=== PATIENT | male | born 1960 | race Caucasian/White ===

== ENCOUNTER → 2023-08-12 08:09 | Outpatient (BNVA) | payer MEDICARE, SELFPAY | PROVIDERS: PCP Nurse Practitioner; Referring Provider Nurse Practitioner; Visit Provider Student in an Organized Health Care Education/Training Program | DX: M17.11 Unilateral primary osteoarthritis, right knee (principal) | CPT/HCPCS: 20610; 99202; J1040 ==

== ENCOUNTER 2023-12-23 11:33 | Outpatient (CLI) | payer MEDICARE, SELFPAY ==
--- NOTE | 2023-12-23 08:15 | DI.RAD_ITS ---
Exam(s) XR KNEE RT 3V AP,LAT,ROLLY EXAM: XR KNEE RT 3V AP,LAT,ROLLY CLINICAL HISTORY: R Knee pain. TECHNIQUE: 2D digital imaging was performed of the right knee. Three views obtained. AP, lateral an d PA tunnel views were obtained. COMPARISON: CR XR KNEE 2 VIEW RIGHT from 10/28/2017 FINDINGS: BONES: No acute fracture is present. No bony destructive lesion is seen. JOINTS: There is marked narrowing of the medial femoral tibial joint. There is also narrowing of the patellofemoral joint. There osteophytes in all 3 joint compartments. No joint effusion is seen. SOFT TISSUE: Normal. IMPRESSION: There are marked degenerative changes seen in the right knee. DATA REPOSITORY: RADIATION DOSE DELIVERED:
== END 2023-12-23 11:34 | disposition home or self-care (01) ==
LOC: DIORS 11:34
PROVIDERS: PCP Nurse Practitioner; Referring Provider Nurse Practitioner; Visit Provider Physician Assistant
DX: M17.11 Unilateral primary osteoarthritis, right knee (principal)
CPT/HCPCS: 20610; 73562; J1010

== ENCOUNTER → 2024-05-14 13:19 | Outpatient (BNVA) | payer MEDICARE, SELFPAY | PROVIDERS: PCP Nurse Practitioner; Referring Provider Nurse Practitioner; Visit Provider Student in an Organized Health Care Education/Training Program | DX: M17.11 Unilateral primary osteoarthritis, right knee (principal) | CPT/HCPCS: 20610; J1010 ==

== ENCOUNTER → 2024-08-13 12:48 | Outpatient (BNVA) | payer MEDICARE, SELFPAY | PROVIDERS: PCP Nurse Practitioner; Referring Provider Nurse Practitioner; Visit Provider Student in an Organized Health Care Education/Training Program | DX: M17.11 Unilateral primary osteoarthritis, right knee (principal) | CPT/HCPCS: 99213 ==

== ENCOUNTER 2024-11-16 03:04 | Outpatient (CLI) | payer MEDICARE, SELFPAY ==
[2024-11-16 18:31] LABS: HCT 42.5 % (40.0-50.0); HGB 14.5 g/dL (13.5-17.5); MCH 33.7 pg (27.0-33.0); MCHC 34.1 % (32.0-36.0); MCV 99 fL (80-95); MPV 8.6 fL (8.0-11.0); Platelet Count 165 10^3/uL (130-400); RDW 12.4 % (11.8-14.1); RDW-SD 45.1 fL; WBC 5.78 10^3/uL (4.4-10.8)
[2024-11-16 18:38] LABS: Anion Gap 8.5 mmol/L (3-11); BUN 31 mg/dL (7-18); CO2 29.5 mmol/L (21.0-32.0); CREATININE 1.3 mg/dL (0.70-1.30); Calcium 9.2 mg/dL (8.5-10.1); Chloride 101 mmol/L (98-107); Estimated GFR 60.59 (mL/min/1.73m2); Glucose 81 mg/dL (74-106); Potassium 4.3 mmol/L (3.5-5.1); Sodium 139 mmol/L (136-145)
== END 2024-11-16 03:05 | disposition home or self-care (01) ==
LOC: LBO 03:05 → LBN 18:08
PROVIDERS: PCP Nurse Practitioner Family; Visit Provider Student in an Organized Health Care Education/Training Program
DX: M17.11 Unilateral primary osteoarthritis, right knee (principal); Z01.818 Encounter for other preprocedural examination
CPT/HCPCS: 80048; 85027

== ENCOUNTER 2024-11-16 13:15 | Outpatient (CLI) | payer MEDICARE, SELFPAY ==
--- NOTE | 2024-11-16 13:20 | DI.RAD_ITS ---
Exam(s) XR KNEE RT 1V XR STANDING ALIGNMENT EXAM: XR STANDING ALIGNMENT CLINICAL HISTORY: PRE OP R TKA. TECHNIQUE: 2D digital imaging was performed. Standing AP views were performed from the pelvis through the ankles. Lateral view of the right, with a [id number] appearance. This causes marked varus angulation. There is prominent periarticular spurring. Left knee joint spaces are maintained. Knee COMPARISON: CR XR KNEE RT 3V AP,LAT,ROLLY from 12/23/2023 CR XR KNEE RT 1V from 11/16/2024 FINDINGS: BONES: No acute fracture is present. No bony destructive lesion is seen. Leg length discrepancy: Mild overall leg length discrepancy, with the left femoral head projecting approximately 5 millimeter superior to the right.. JOINTS: Knees: There is severe narrowing of the medial femoral tibial joint space of the right knee The ankle joints are unremarkable. The hip joints are unremarkable. SOFT TISSUE: Skin soft tissue calcifications in the lower legs bilaterally. IMPRESSION: Severe degenerative changes of the right knee. Mild leg length discrepancy. DATA REPOSITORY: RADIATION DOSE DELIVERED:
--- NOTE | 2024-11-16 13:27 | DI.RAD_ITS ---
Exam(s) XR KNEE RT 1V XR STANDING ALIGNMENT EXAM: XR STANDING ALIGNMENT CLINICAL HISTORY: PRE OP R TKA. TECHNIQUE: 2D digital imaging was performed. Standing AP views were performed from the pelvis through the ankles. Lateral view of the right, with a [id number] appearance. This causes marked varus angulation. There is prominent periarticular spurring. Left knee joint spaces are maintained. Knee COMPARISON: CR XR KNEE RT 3V AP,LAT,ROLLY from 12/23/2023 CR XR KNEE RT 1V from 11/16/2024 FINDINGS: BONES: No acute fracture is present. No bony destructive lesion is seen. Leg length discrepancy: Mild overall leg length discrepancy, with the left femoral head projecting approximately 5 millimeter superior to the right.. JOINTS: Knees: There is severe narrowing of the medial femoral tibial joint space of the right knee The ankle joints are unremarkable. The hip joints are unremarkable. SOFT TISSUE: Skin soft tissue calcifications in the lower legs bilaterally. IMPRESSION: Severe degenerative changes of the right knee. Mild leg length discrepancy. DATA REPOSITORY: RADIATION DOSE DELIVERED:
== END 2024-11-16 13:16 | disposition home or self-care (01) ==
LOC: DIORS 13:16
PROVIDERS: PCP Nurse Practitioner Family; Referring Provider Nurse Practitioner Family; Visit Provider Physician Assistant
DX: Z01.818 Encounter for other preprocedural examination (principal); M17.11 Unilateral primary osteoarthritis, right knee
CPT/HCPCS: 99024; 73560; 77073

== ENCOUNTER 2024-11-24 08:12 | Day surgery (SDC) | payer MEDICARE, SELFPAY ==
[2024-11-24] VITALS (7 sets, daily range): BP systolic 135–157; BP diastolic 63–72; PULSE 55–85; RESP 12–17; TEMP 36.1–37.2; O2SAT 93–100; BMI 47.6
--- NOTE | 2024-11-24 07:21 | PDOC.DSDIS_ITS ---
Date of service: 11/24/24 Discharge Plan Disposition Patient Disposition: Home Condition: Good Discharge Details Reason For Visit: Right knee DJD Attending Provider: Rayshawn Mcmahan Primary Care Provider: CHRIS MOHR [place] Meds and New Rx's Prescriptions: New meloxicam 15 mg tablet 15 mg PO DAILY Qty: 30 1RF Rx Instructions: Take one tablet daily for pain and inflammation acetaminophen 500 mg tablet 1,000 mg PO Q8H PRN Qty: 90 0RF Rx Instructions: Take two tablets up to every 8 hours as needed for pain pantoprazole 40 mg tablet,delayed release (DR/EC) 40 mg PO DAILY Qty: 14 0RF dexamethasone 4 mg tablet 4 mg PO DAILY Qty: 2 0RF Rx Instructions: Take one tablet once daily for two days docusate sodium [Colace] 100 mg capsule 100 mg PO BID Qty: 28 0RF oxycodone 5 mg tablet 5 mg PO Q4H PRNQty: 18 0RF Rx Instructions: Take one tablet up to every 4 hours as needed for severe postoperative pain Continued metoprolol succinate 100 mg tablet extended release 24 hr 150 mg PO HS gabapentin 300 mg capsule 300 mg PO QHS duloxetine 60 mg capsule,delayed release(DR/EC) 60 mg PO DAILY atorvastatin 40 mg tablet 40 mg PO DAILY bupropion HCl 150 mg tablet sustained-release 12 hr 300 mg PO QAM hydrochlorothiazide 25 mg tablet 25 mg PO DAILY omega-3 fatty acids-fish oil 340-1,000 mg capsule 1 cap PO HS ramipril 10 mg capsule See Rx Instructions PO BID Rx Instructions: one capsule every morning and 2 capsules every night orally multivitamin Tablet 1 tab PO DAILY aspirin 325 mg tablet 325 mg PO DAILY Zepbound 2.5 mg/0.5 mL pen injector 2.5 mg subcut QWEEK Rx Instructions: for 4 weeks Discontinued diclofenac sodium 75 mg tablet,delayed release (DR/EC) 75 mg PO DAILY Discharge Instructions Additional Instructions: Total Knee Discharge Instructions Activity: The most important activity is to walk and to work on gentle motion (both flexion and extension). You should try to take short walks a few times a day. It is important that when resting you work on keeping the knee straight. Avoid putting a pillow behind the knee as this will encourage flexion. Work on range of motion exercises as provided by Physical Therapy. - Start outpatient physical therapy within 2 weeks. - You should wear the JAMES hose on both legs for 2 weeks. You may remove these at night. You may also use any compression sock in place of the JAMES hose. - Utilize [employer] to review exercises, see videos on exercises and obtain basic information pertaining to your surgery and your recovery. Dressing: Remove the Frantz wrap by 2 days after your surgery and put on the JAMES stocking given to you from the hospital. Keep the surgical dressing (underneath the FRANTZ wrap) in place for at least one week. After the first week it may be removed and replaced with light gauze and tape or nothing. The wound and dressing may get wet after 3 days but avoid soaking the dressing or otherwise it will need to be changed. Many people prefer covering the dressing with cling wrap (saran wrap) to minimize it from getting soaked. If it gets wet, just pat dry. If it starts to peel off then it will need to be changed. Medications: - You should take Tylenol and anti-inflammatory Meloxicam as your primary pain control medications. If the Meloxicam is too expensive or not covered, please call the office for another alternative (Advil/Ibuprofen or Naproxen/Aleve) - You have been prescribed a stronger pain medication Oxycodone for breakthrough pain, take as needed as prescribed. - You have also been prescribed a stomach acid reduction agent Pantoprozole to help reduce stomach acid and reflux. - You take Gabapentin at baseline - continue to take at night for restlessness and nerve pain. - You have also been prescribed Decadron to take to control post-operative nausea and pain. You will start this tomorrow. - If you have constipation you should take Colace (which has been prescribed) or Miralax (which is available [id number]). It takes most people 3-4 days to have a bowel movement. Follow-up: 2 weeks If you have any acute concerns or questions, please do not hesitate to contact the office at [phone]. You may contact Dr. Mcmahan with any questions after hours through the hospital at [phone] or on his cell phone at [phone]. Referrals: Rayshawn Mcmahan MD [ [facility] STAFF PHYSICIAN, Orthopaedic Surgical] Equipment/Supplies: Walker Activity:: Elevate Remove Dressings/Wound Care:: Do Not Remove Shower/Bathe:: Cover Diet:: As Tolerated Discharge Orders Discharge Orders: Discharge Order (Routine); Ordered 11/24/24 Ordered By: Alley Gupta
[2024-11-24] MEDS: Acetaminophen 500 MG TAB 1000 MG PO (09:20)
[2024-11-24] MEDS: Gabapentin 300 MG CAP PO (09:21)
[2024-11-24] MEDS: Celecoxib 200 MG CAP 400 MG PO (09:21)
[2024-11-24] MEDS: Lactated Ringers 1,000 ML 80 ML IV ×2 (09:36→13:03)
--- NOTE | 2024-11-24 09:49 | W.ANESPRE ---
General Info Date of Service Date Performed: 11/24/24 Height: 5 ft 5 in Weight: 129.9 kg Body Mass Index (BMI): 47.6 Surgical Procedure: Operation Date: 11/24/24 11:40 Proposed Procedure Side Surgeon p Knee Total Arthroplasty Right Rayshawn Mcmahan MD Actual Procedure Side Surgeon p Knee Total Arthroplasty Right Rayshawn Mcmahan MD Pre-Op Diagnosis Post-Op Diagnosis Osteoarthritis of right knee Meds Allergies and Home Medications Allergies Allergy/AdvReac Type Severity Reaction Status Date / Time Opioids - Morphine Analogues Allergy Intermediate Other (See Verified 11/24/24 09:02 Comment) acetaminophen (From Tylenol AdvReac Other (See Verified 11/24/24 08:43 Cold Head Congestion) Comment) dextromethorphan (From AdvReac Other (See Verified 11/24/24 08:43 Tylenol Cold Head Congestion) Comment) guaifenesin (From Tylenol AdvReac Other (See Verified 11/24/24 08:43 Cold Head Congestion) Comment) morphine AdvReac vomiting Verified 11/24/24 08:43 omega-3 acid ethyl esters AdvReac Other (See Verified 11/24/24 08:43 (From [place]) Comment) phenylephrine (From Tylenol AdvReac Other (See Verified 11/24/24 08:43 Cold Head Congestion) Comment) Home Medication ?Medication ?Instructions ?Recorded aspirin 325 mg tablet 325 mg PO DAILY 07/10/23 atorvastatin 40 mg tablet 40 mg PO DAILY 07/10/23 bupropion HCl 150 mg tablet,12 hr 300 mg PO QAM 07/10/23 sustained-release duloxetine 60 mg capsule,delayed 60 mg PO DAILY 07/10/23 release gabapentin 300 mg capsule 300 mg PO QHS 07/10/23 hydrochlorothiazide 25 mg tablet 25 mg PO DAILY 07/10/23 multivitamin 1 tab PO DAILY 07/10/23 omega-3 fatty acids-fish oil 340 1 cap PO HS 07/10/23 mg-1,000 mg capsule ramipril 10 mg capsule See Rx Instructions PO BID 07/10/23 metoprolol succinate 100 mg 150 mg PO HS 11/16/24 tablet,extended release 24 hr tirzepatide (weight loss) 2.5 2.5 mg subcut QWEEK 11/18/ mg/0.5 mL subcutaneous pen injector (Zepbound) acetaminophen 500 mg tablet 1,000 mg (2 x 500 mg) PO Q8H PRN 11/24/24 pain #90 tabs dexamethasone 4 mg tablet 4 mg PO DAILY #2 tabs 11/24/24 diclofenac sodium 75 mg mg PO ONCE 11/24/24 tablet,delayed release docusate sodium 100 mg capsule 100 mg PO BID #28 caps 11/24/24 (Colace) meloxicam 15 mg tablet 15 mg PO DAILY #30 tabs 11/24/24 oxycodone 5 mg tablet 5 mg PO Q4H PRN #18 tabs 11/24/24 pantoprazole 40 mg tablet,delayed 40 mg PO DAILY #14 tabs 11/24/24 release Current Visit Medications: Current Medications Generic Name Dose Route Start Last Admin Trade Name Freq PRN Reason Stop Dose Admin Acetaminophen 1,000 mg 11/24/24 06:00 11/24/24 09:20 Acetaminophen 500 Mg Tab PO 11/24/24 23:59 1,000 mg PREOP JENNY Administration Celecoxib 400 mg 11/24/24 06:00 11/24/24 09:21 Celecoxib 200 Mg Cap PO 11/24/24 23:59 400 mg PREOP JENNY Administration Ephedrine Sulfate 0 mg 11/24/24 09:27 Ephedrine 25 Mg/5 Ml Syringe IVP 12/24/24 09:26 DIRECTED PRN Fentanyl 0 mcg 11/24/24 09:27 Fentanyl 100 Mcg/2 Ml Vial IVP 12/24/24 09:26 DIRECTED PRN Gabapentin 300 mg 11/24/24 06:00 11/24/24 09:21 Gabapentin 300 Mg Cap PO 11/24/24 23:59 300 mg PREOP JENNY Administration Hydromorphone HCl 0.5 mg 11/24/24 07:19 Hydromorphone 2 Mg/Ml Syr IVP 12/24/24 07:18 Q2H PRN PRN Hydromorphone HCl 0 mg 11/24/24 09:27 Hydromorphone 2 Mg/Ml Syr IVP 12/24/24 09:26 DIRECTED PRN Ringer's Solution 1,000 mls @ 80 mls/hr 11/24/24 06:00 11/24/24 09:36 IV 12/23/24 23:59 80 mls/hr INFUSION JENNY Administration Cefazolin Sodium 3,000 mg/ 100 mls @ 200 mls/hr 11/24/24 06:00 Sodium Chloride IV 11/24/24 23:59 PREOP JENNY Tranexamic Acid/Sodium Chloride 1,000 mg in 100 mls @ 600 mls/hr 11/24/24 06:00 IVPB 11/24/24 23:59 PREOP JENNY Cefazolin Sodium/Dextrose 1 gm in 50 mls @ 100 mls/hr 11/24/24 08:00 Ancef Duplex IVPB 11/25/24 00:29 Q8H JENNY IV Miscellaneous Supplies 1 each 11/24/24 06:00 Iv Access IV 12/23/24 23:59 DIRECTED JENNY Naloxone HCl 0 mg 11/24/24 09:27 Naloxone 0.4 Mg/Ml Vial IVP 12/24/24 09:26 PRN PRN Oxycodone HCl 0 mg 11/24/24 07:19 Oxycodone 5 Mg Tab PO 12/24/24 07:18 Q3H PRN PRN Pain Sodium Chloride 0 ml 11/24/24 06:00 Normal Saline Flush 10 Ml Syr IV 12/23/24 23:59 PRN PRN Sodium Chloride 0 ml 11/24/24 06:00 Normal Saline 10 Ml Vial IJ 12/23/24 23:59 DIRECTED PRN Sterile Water 0 ml 11/24/24 06:00 Water,Injection,Sterile 10 Ml Vial IJ 12/23/24 23:59 DIRECTED PRN Tranexamic Acid 1,300 mg 11/24/24 07:19 Tranexamic Acid 650 Mg Tab PO 12/24/24 07:18 ONCE PRN postoperative PFSH Active Problems Active Problems: Problem Status Onset Code Osteoarthritis of right knee Acute M17.11 Thoracic aortic aneurysm Acute I71.20 TONIO (obstructive sleep apnea) Chronic G47.33 Panic disorder Acute F41.0 Depressive disorder Chronic F32.A Pulmonary hypertension Acute I27.20 Cholelithiasis Acute K80.20 Morbid obesity Acute E66.01 Hypertension Chronic I10 CAD (coronary artery disease) Chronic I25.10 Medical History Medical History History of placement of stent in LAD coronary artery Malignant melanoma Diastolic heart failure Hyperlipidemia History of malignant melanoma Inguinal lymphadenopathy Surgical History Surgical History History of tonsillectomy History of colonoscopy History of melanoma excision History of cardiac cath 2 stents Tobacco Smoking/Tobacco Use Status: Never Alcohol Alcohol Intake: never Substance Use Substance use: Never Substance use type: does not use Vital Signs and Lab Results Vital Signs Most Recent Vital Signs in EMR: Most Recent Vital Signs Temp Pulse Resp BP Pulse Ox 36.2 C L 55 L 16 155/72 H 96 11/24/24 08:33 11/24/24 08:33 11/24/24 08:33 11/24/24 08:33 11/24/24 08:33 Lab Results Complete Blood Count: WBC, (4.4-10.8) 5.78 10^3/uL 11/16/24, 14:15 RBC, (4.36-5.78) 4.30 10^6/uL L 11/16/24, 14:15 Hgb, (13.5-17.5) 14.5 g/dL 11/16/24, 14:15 Hct, (40.0-50.0) 42.5 % 11/16/24, 14:15 Plt Count, (130-400) 165 10^3/uL 11/16/24, 14:15 Complete Metabolic Panel: Sodium, (136-145) 139 mmol/L 11/16/24, 14:15 Potassium, (3.5-5.1) 4.3 mmol/L 11/16/24, 14:15 Chloride, (98-107) 101 mmol/L 11/16/24, 14:15 Carbon Dioxide, (21.0-32.0) 29.5 mmol/L 11/16/24, 14:15 BUN, (7-18) 31 mg/dL H 11/16/24, 14:15 Creatinine, (0.70-1.30) 1.3 mg/dL 11/16/24, 14:15 Est GFR (CKD-EPI 2020), (mL/min/1.73m2) 60.59 11/16/24, 14:15 Calcium, (8.5-10.1) 9.2 mg/dL 11/16/24, 14:15 Glucose, (74-106) 81 mg/dL 11/16/24, 14:15 Anesthesia Assessment and Plan Anesthesia History Personal History: PONV Family History: No Family History of Anesthesia Complications and Other Exercise Tolerance Exercise Tolerance: Metabolic Equivalents>4 Pertinent Negatives Pertinent Negatives: No Symptoms of GERD Cardiac & Pulmonary Exam Cardiac Exam: Normal S1/S2 Heart Sounds Pulmonary Exam: Clear Bilateral Breath Sounds Implantable Cardiac Device Does patient have a Pacemaker or an ICD?: No Airway Exam Known Difficult Airway: No Mallampati Class: 3 Mouth Opening: Normal (> 3cm) Thyromental Distance: Greater than 3 cm Neck Range of Motion: Full ROM Neck Circumference: Normal Teeth Condition: Normal Dentition ASA Classification ASA Score: ASA 3 Emergency Case?: No NPO Status NPO Status: NPO Clears >2 hours, Solids >8 hours Anesthesia Plan Resuscitation Status: Full Code Anesthesia Technique: Spinal Anesthesia Airway Planned: Natural Airway Pain Management: Surgeon and patient request nerve block Monitors Used: Standard Monitors
--- NOTE | 2024-11-24 10:33 | W.ANESNERVE ---
Nerve Block Single Injection Procedure Date and Time Date Performed: 11/24/24 Procedure Start: 10:11 Location Where Procedure Performed Procedure Location: Day Surgery Unit Reason Performed: Postoperative Analgesia Requesting Provider: Rayshawn Mcmahan Timeout Performed Timeout Performed: Yes Monitoring Used ECG, Blood Pressure, SpO2, ETCO2 and See EMR for corresponding vital signs Sterility Sterility: Hand Hygiene, Surgical Cap, Surgical Mask, Sterile Gloves, Eye Protection and Chlorhexidine Sedation Given During Procedure Sedation Given (Indicate Dose Given): Versed IV Dose:: 3mg IVP Patient Mental Status Patient Mental Status: Sedate with meaningful communication Nerve Block 1st Nerve Block: Laterality: Right Block Type: Adductor Canal Ultrasound Image Saved?: Yes Needle / Catheter Used: 120mm SonoPlex II Local Anesthetic Bolus (Indicate Dose Given): Lidocaine used for local infiltration of skin, Injected in 3-5ml increments after negative blood aspiration, Bupivacaine 0.5% Dose:: 0.5%/10cc (50mg) and Exparel Dose:: 10cc/1.33% (133mg) Additives (Indicate Dose Given): Epinephrine to make 1:200,000 (5mcg/ml) (added to 0.5% Bup) Dose:: 50mcg Ultrasound: Sterile probe cover and gel used Nerve Stimulator: Not Used Paresthesia: None Procedure Tolerated: No Complications and Patient tolerated well Procedure Outcome: Successful Performed By: Diogo Wells
[2024-11-24] MEDS: ceFAZolin 3,000 MG in Normal Saline 100 ML 200 MG IV (11:05)
[2024-11-24] MEDS: TRANEXAMIC ACID/SOD. CHL. 1,000 MG/100 ML BAG 600 MG IVPB (11:11)
--- NOTE | 2024-11-24 14:18 | W.PM.OP ---
Operative Note Operative Note PRE-OP DIAGNOSIS: Right Knee Osteoarthritis with Severe Varus Deformity POST-OP DIAGNOSIS: same PROCEDURE: Right Total Knee Replacement with Intraoperative Navigation SURGEON: Rayshawn Mcmahan INFECTION CONTROL PRACTITIONER: Alley Gupta ANESTHESIA TYPE: Spinal Refer to Anesthesia Record ESTIMATED BLOOD LOSS: 200 PATHOLOGY: none sent TOURNIQUET TIME: 0 COMPLICATIONS: None Patient was transported to: PACU Patient's condition: stable Implants: 1. Depuy Attune Cementless Cruciate Retaining Femoral Component, Size 6 2. Depuy Attune Cementless Fixed Bearing Tibial Component, Size 6 3. Depuy Attune 6x7mm CR/FB Poly Indications: I have seen Rodrigo in clinic for symptoms of RIGHT knee arthritis, confirmed with radiographic findings. Rodrigo has exhausted nonoperative methods and was having significant limitations in daily function and desired better function and less pain. I discussed the technical details of a knee replacement. I explained the risks of the procedure to include, but not limited to, bleeding, infection, pain, stiffness, fracture, damage to nerves and vessels, damage to muscles and tendons, loosening, need for repeat procedure, blood clot and cardiopulmonary demise. Despite these risks, he elected to proceed. Findings: There was significant signs of arthritis throughout the knee with severe varus deformity the tibia, particular in the posterior aspect and notable laxity of the lateral soft tissues. Large osteophytes throughout the entirety of the knee but focus about the medial compartment. Procedure Description: Rodrigo was greeted in the preoperative holding area where the correct side was identified and marked. The consent was reviewed with the patient and signed. The history and physical was updated. All questions were answered. Preoperative mediacations were administered: Acetaminophen 1000mg, Celebrex 400mg, and Gabapentin 300mg. An adductor canal block was then administered by the anesthesia team in the DSU. Rodrigo was taken back to the operating room. A spinal anesthestic was then administered. The patient was placed into the supine position on the operating room table. Posts were placed for positioning during the procedure. All bony prominences were well padded. Prophylactic antibiotics in the form of Cefazolin were administered. 1g of Tranxemic Acid was given intravenously within 30 minutes of incision. The right leg was then prepped with Chloraprep and draped in a standard fashion with impervious stockinette. A second prep with Chloraprep was performed prior to application of Iodine impregnated skin protection. A timeout to confirm correct identity, side and site, procedure, allergies, anesthesia, and medical concerns was performed. With the knee in some flexion, a midline incision was made overlying the knee. Full thickness skin flaps were raised once the extensor mechanism was encountered. These were raised medially and laterally. Any bleeding was controlled with electrocautery. Once the extensor mechanism was fully exposed, a medial parapatellar arthrotomy was performed in a flexed position. All bleeding from the arthrotomy and the geniculate arteries was coagulated. A medial subperiosteal peel was performed with electrocautery to the midcoronal plane. Due to the significant varus deformity the entire medial tibial plateau was exposed. The fat pad was removed while keeping the patellar tendon protected. The anterior distal femur synovium was removed for later visualization. The ACL and PCL were resected and the anterior horn of the lateral meniscus was transected. The knee was then flexed with the patella everted. Large osteophytes from the tibia were removed. Large osteophytes from the femur were removed. There is significant tibial varus with a slope posteriorly. A single starting pin was then placed 1cm anterior to the PCL insertion and the notch in the direction of the femoral head. The OrthoAlign device was applied over the pin. It was oriented to be in line with the epicondylar axis and the trochlear groove. It was then pinned into place. The navigation computer was then turned on and calibrated. The distal femur cut was set at 1 degrees varus and 3.5 degrees flexion. The distal femur cutting guide then was positioned for a 9mm cut. The distal femur was cut with an oscillating saw while protecting the soft tissues. The tibia was then addressed. The OrthoAlign device was placed over the tibial tubercle and medial tibia and secured into position. Once again, OrthoAlign was calibrated and then set for a 3 degree varus cut and 6.5 degrees of posterior slope. With this locked into position, the cut thickness stylus was used to assess cut thickness. The medial side, most involved side, was set for a 2mm cut. This was then held in position and pinned into place with 2 additional pins and a cross pin for stability. The medial and lateral collateral ligaments were protected and the cut was performed. With this completed, it was assessed and noted to be of appropriate dimensions. The guide and OrthoAlign was removed. A spacer block was inserted and the knee was brought into extension to ensure enough space was present. . I then completed a posterior medial release of the capsular tissues and removed all osteophytes through the posterior medial aspect of the tibia and the medial aspect of the femur. The Orthoalign gap balancing device was then placed in extension. This did show some laxity laterally compared to medial but it was within 3 to 4 mm which was acceptable at this point. The extension gap was measured as 19mm. The knee was then brought into 90 degrees of flexion and the ligament butt welder was once again placed. Under the same amount of force the flexion gap was measured. The Attune specific jig was placed and the flexion gap was made to match the extension gap. The femur was then sized as a size 6. The 4-in-1 cutting guide was the placed. An [place] wing was used to confirm appropriate position of the anterior cut to avoid notching. This cutting guide was ensured to be flush on the cut surface and then pinned into place with headed pins. While protecting the soft tissues, quad tendon, and collateral ligaments, the anterior and posterior cuts were performed with a saw. The central two pins were removed and the posterior and anterior chamfers were cut next. The notch-cutting guide was placed. This was pinned to lateralize the femoral component as much as possible while keeping it flush on the cut surface. This was then pinned into position. A saw was used to make the notch cut. A rasp smoothed the cut surfaces. The medial and lateral menisci were removed. A trial femoral component was then inserted, impacted down to the cut surfaces, and the lug holes were drilled. A provisional trial tibial component was placed and the knee was brought through range of motion. The polyethylene was trialed until there was good flexion and extension with excellent stability to the medial and lateral collaterals. The patella was tracking without thumbs. A size 7mm polyethylene component provided the best range of motion and stability with less than 2mm gapping with medial and lateral stress and full extension without significant hyperextension. The tibial cut surface was fully exposed. The tibia was then sized as a 6. The tibia had been previously marked during trialing to correspond to the center of the tibial component to help with rotation. The trial was aligned to this amy, approximately rotated to the medial 1/3rd of the tibial tubercle. The trial was pinned into place. The tibia was prepared with a reamer and a keel punch and lug holes. The trial components were removed. The final components were opened on the back table. The periosteal and capsular tissues, especially posteriorly, around the knee were then systematically injected with a periarticular cocktail consisting of 246mg of Ropivacaine, 0.5mg of Epinephrine, 0.08mg of Clonidine, and 30mg of Ketorolac, diluted to 100cc. Then, the knee components were placed. Starting with the tibial component, the tibia was subluxed anteriorly and the lug holes of the component were lined up. The tibia was then impacted with an impactor and mallet until the tibial component was in contact with the tibia. Then, the femoral component was inserted. The lug holes were aligned and the component was impacted into position. The final polyethylene component was inserted. The knee was irrigated with Surgiphor Betadine solution. This was allowed to sit in the knee for 3 minutes and then it was thoroughly irrigated out with saline. The knee was then taken through range of motion. The patella was tracking with a no-thumbs technique. A complete synovectomy of the patella was performed. Any prominence to the lateral facet was resected with a rongeur. The capsule was then reapproximated with a No. 1 Vicryl at multiple locations. The capsule was finally closed with a No. 2 Stratafix, barbed suture. Deep tissues were then reapproximated with 0 Vicryl and 2-0 Vicryl. The skin was closed with a running 3-0 Monocryl in a subcuticular fashion. This was reinforced with skin glue. A Mepilex silver dressing was applied along with a [id number] RHEA wrap. A CryoCuff was applied. Rodrigo was transferred to the hospital bed without difficulty an suffering no apparent complication. Rodrigo has a good prognosis. Physical therapy will start today and without restrictions, weight-bearing as tolerated. His home dose of aspirin 325 mg daily will be used for DVT prophylaxis. Date of Procedure: 11/24/24
[2024-11-24] MEDS: Tranexamic Acid 650 MG TAB 1300 MG PO (14:49)
--- NOTE | 2024-11-24 14:58 | W.ANESPOSTOP ---
Postoperative Evaluation Date, Time and Location Date Performed: 11/24/24 Time Performed: 14:59 Patient Location: Day Surgery Unit Vital Signs Most Recent Imported Vital Signs: Most Recent Vital Signs Temp Pulse Resp BP Pulse Ox 36.5 C 69 17 138/69 93 11/24/24 14:30 11/24/24 14:30 11/24/24 14:30 11/24/24 14:30 11/24/24 14:30 Pain Score Most Recent Pain Score: Most Recent Pain Score Pain Level 5 11/24/24 14:30 Assessment Mental Status: Awake (Alert & Oriented to Patient Baseline) Airway and Respiratory Function: Patent airway with normal (patient baseline) respiratory exam Cardiovascular Function: Hemodynamically Stable Hydration Status: Adequately Hydrated Nausea & Vomiting: No Nausea or Vomiting Pain: Pain is tolerable per patient Peripheral Nerve Block: Regional nerve block not resolved at time of post operative discharge
--- NOTE | 2024-11-24 15:54 | PT.INIE ---
PT Notes Visit Reasons: Right knee DJD Physical Therapy Day Surgery Initial Evaluation Date: 11/24/24 Referring Doctor: Dr. Mcmahan PT Orders: PT CONSULT s/p right TKA Precautions: WBAT Patient Profile/Admitting Diagnosis: Rodrigo is a 64 year old retired male with right knee OA, referred for PT evaluation and treatment s/p right TKA, post-op day 0. Social History/Home Situation: Rodrigo lives with his in a multi-level home. Bedroom and bathroom on main floor. Needs to manage 2 steps to toilet. Typically ambulates without device. Has been ascending stairs on his hands and knees for a couple years; descends sideways. His is present and supportive throughout session. Equipment Owned/DME: none Subjective: Rodrigo states that his knee is achy. He's declined Tylenol, stating he wants to avoid all medication if possible. Objective: General Observation: Resting in bed with hip externally rotated and knee flexed to ~40*. IV in RUE. Mental Status: A and O x 3 Pain: 8/10 ROM: Right Upper Extremity: WFL Left Upper Extremity: WFL Right Lower Extremity: Right knee range of motion allows 0 to 85 degrees flexion during functional movement. Left Lower Extremity: WFL Strength: Right Lower Extremity: Able to perform SLR without extension lag. Able to pump ankle and wiggle toes. Left Lower Extremity: 3 out of 5 or greater for all motions of hip knee and ankle. Sensation: Intact distally Bed Mobility/Transfers: Supine to sit: SBA Sit to stand : SBA with cues for technique and equipment management Stand to sit : SBA with cues for technique Gait: Ambulates 50 feet x 2 with FWW and CGA. Requires cues for gait mechanics and technique. Stairs manages therapeutic stairs 4 inches x 3, 6 inches x 2 with bilateral upper extremity support to rails. Cues for step to pattern. Balance: Static Sitting: Good Dynamic Sitting: Good Static Standing: Fair Dynamic Standing: Fair Special Tests: Mobility Limitations Standardized Measure [facility] AM-PAC 6 clicks Basic Mobility Inpatient Short Form: Raw Score: 23 CMS Score: 11% impairment Informed Consent/Education: Patient instructed in purpose of PT consult. Packet containing [] exercise protocol has been given to patient. Education and training on initial set of exercises that can be done at home have been completed with patient. Treatment: Initial evaluation (56978) Therapeutic activities (52095): Instructed in transfers, gait mechanics, stair management with use of upper extremity support throughout. Provided with home exercise program for pre-gait activities to assist with range of motion and postoperative mobility. Encourage frequent propping into knee extension and instructed in appropriate set up for doing so. Was fitted for FWW and instructed in appropriate use during ambulation and transfers. Issued walker during treatment session. Assessment: Rodrigo is a 64-year-old male with right knee OA presenting status post right TKA postop day 0. Patient presents with clinical signs and symptoms consistent with postop status with mobility limitations, gait instability, generalized weakness, and impairment of motor control as demonstrated by the following impairment level findings: 1. Decreased strength to right knee major muscle groups 2. Impaired standing balance 3. Limitation of joint range of motion in right knee 4. decreased right knee range of motion Impairments are contributing to the following functional limitations: 1. Inability to safely ambulate without assistive device 2. Increase completion time for mobility ADL performance 3. Increased fall risk Patient is assessed as a low complexity based on the following: History: As above. Complicating factor of chronic back pain and morbid obesity Examination: Demonstrable impairment in strength, balance, and mobility level with underlying impairments and functional limitations as documented above Presentation: Stable Decision Making: Low complexity Goals: N/A. PT evaluation and 1-2 treatment sessions only for functional mobility training using recommended AD and for HEP instruction. Plan of Care/Treatment Plan: N/A. PT evaluation and 1-2 treatment session only for functional mobility training using recommended AD and for HEP instruction. DISCHARGE RECOMMENDATIONS: Home with family support. Requires FWW for safe ambulation, and walker was issued during today's session. TREATMENT CODE/TIME: 1520?1550 ([id number], [id number]) Thank you for the opportunity to participate in the care of this patient. Please sign an return this page within 30 days if you agree with the above POC. Thank you! Physician Signature Date Penny Chung PT, DPT [facility], [facility] All Active Problems (Updated 11/24/24 @ 13:30 by Carmen Cuello, RN) History of total right knee replacement (Acute 11/24/24) Thoracic aortic aneurysm (Acute) TONIO (obstructive sleep apnea) (Chronic) Panic disorder (Acute) Depressive disorder (Chronic) Pulmonary hypertension (Acute) Cholelithiasis (Acute) Morbid obesity (Acute) Hypertension (Chronic) CAD (coronary artery disease) (Chronic) Medical History (Updated 11/24/24 @ 13:30 by Carmen Cuello, RN) History of placement of stent in LAD coronary artery Malignant melanoma Diastolic heart failure Hyperlipidemia History of malignant melanoma Inguinal lymphadenopathy Surgical History (Updated 11/24/24 @ 13:30 by Carmen Cuello, RN) History of tonsillectomy History of colonoscopy History of melanoma excision History of cardiac cath 2 stents
== END 2024-11-24 16:50 | disposition home or self-care (01) ==
PROVIDERS: PCP Nurse Practitioner Family; Visit Provider Student in an Organized Health Care Education/Training Program
PROC: (CPT 27447; principal; 2024-11-24 11:30)
DX: M17.11 Unilateral primary osteoarthritis, right knee (principal); M21.161 Varus deformity, not elsewhere classified, right knee; G89.18 Other acute postprocedural pain
CPT/HCPCS: 27447; 20985; 64447; 97161; 97530; C1776; J0166; J0665; J0666; J0690; J1100; J2003; J2250; J2371; J2401; J2405; J2704

== ENCOUNTER 2024-12-07 13:43 | Outpatient (CLI) | payer MEDICARE, SELFPAY ==
--- NOTE | 2024-12-07 13:15 | DI.RAD_ITS ---
Exam(s) XR KNEE RT 1V EXAM: XR KNEE RT 1V CLINICAL HISTORY: 1ST POST OP S/P R TKA. TECHNIQUE: 2D digital imaging was performed. COMPARISON: CR XR KNEE RT 1V from 11/16/2024 FINDINGS: Single lateral view of right knee Components of the prosthesis appear to be in satisfactory position alignment on this lateral view. No fracture or loosening evident. IMPRESSION: Satisfactory appearance DATA REPOSITORY: RADIATION DOSE DELIVERED:
--- NOTE | 2024-12-07 13:15 | DI.RAD_ITS ---
Exam(s) XR STANDING ALIGNMENT EXAM: XR STANDING ALIGNMENT CLINICAL HISTORY: 1ST POST OP S/P R TKA. TECHNIQUE: 2D digital imaging was performed. COMPARISON: CR XR KNEE RT 1V from 11/16/2024 CR XR STANDING ALIGNMENT from 11/16/2024 FINDINGS: 3 views There has been interval placement of right knee prosthesis. There are calcific densities on both sides of the right knee adjacent to the outer aspect of the medial femoral condyle and medial tibial plateau as well as off the lateral aspect of the joint. Hips appear unremarkable. Ankles unremarkable though there is a screw projected over the right ankle region. No significant osseous lesions IMPRESSION: Calcific densities on both sides of the recently placed right knee prosthesis. Correlate clinically. DATA REPOSITORY: RADIATION DOSE DELIVERED:
== END 2024-12-07 13:44 | disposition home or self-care (01) ==
LOC: DIORS 13:43
PROVIDERS: PCP Nurse Practitioner Family; Visit Provider Student in an Organized Health Care Education/Training Program
DX: Z47.1 Aftercare following joint replacement surgery (principal); Z96.651 Presence of right artificial knee joint; M25.562 Pain in left knee
CPT/HCPCS: 99024; 73560; 77073

== ENCOUNTER → 2025-02-18 14:06 | Outpatient (BNVA) | payer MEDICARE, SELFPAY | PROVIDERS: PCP Nurse Practitioner Family; Referring Provider Nurse Practitioner Family; Visit Provider Physician Assistant | DX: Z47.1 Aftercare following joint replacement surgery (principal); Z96.651 Presence of right artificial knee joint | CPT/HCPCS: 99024 ==